=== PATIENT | female | born 1995 | race Hispanic/Latino ===

== ENCOUNTER → 2018-02-08 10:11 | Outpatient (CLI) | payer OTHER, SELFPAY ==
--- NOTE | 2018-02-08 10:13 | DI.RAD.S_ITS ---
PROCEDURE: XR FOOT RT MIN 3V INDICATIONS: 22 year-old female with right foot pain for 3 days, without known injury. TECHNIQUE: 3 views of the foot were acquired. COMPARISON: None. FINDINGS: Bones: No fractures or dislocations. No suspicious bony lesions. Soft tissues: No tibiotalar joint effusion. Achilles tendon appears normal. IMPRESSION: No radiographic explanation for right foot pain. Dictated by: Petr Evans M.D. on 02/08/2018 at 10:40 Approved by: Petr Evans M.D. on 02/08/2018 at 10:40
== END ==
PROVIDERS: Visit Provider Nurse Practitioner Family
DX: M79.671 Pain in right foot (principal)
CPT/HCPCS: 73630